=== PATIENT | male | born 1995 | race Caucasian/White ===

== ENCOUNTER → 2020-08-30 | Outpatient (REF) ==
--- NOTE | 2020-08-30 13:14 | Diagnostic Imaging Report ---
INDICATION: Left hand injury AP, oblique and lateral views of the left hand are obtained. There is swelling at the distal aspect of the 4th finger, however, no fracture or malalignment is identified. No radiopaque foreign body is seen. IMPRESSION: Fourth finger swelling which may be due to contusion. No acute osseous abnormality is identified. Dictated by: Dictated on workstation # [id number]
== END ==
LOC: OCC 12:54
PROVIDERS: ATTEND Family Medicine
DX: S69.92XA Unspecified injury of left wrist, hand and finger(s), initial encounter (principal); X58.XXXA Exposure to other specified factors, initial encounter
CPT/HCPCS: 73140